=== PATIENT | male | born 2005 | race Two or more races ===

== ENCOUNTER 2024-05-09 13:56 | Emergency (ER) | payer MEDICAID ==
[~2024-05-09] VITALS: Ht 160 cm; Wt 47.7 kg
[~2024-05-09 13:56] MED LIST: LANTUS SUBCUT
[2024-05-09] MEDS ORDERED: DOXY-460 PO (14:58)
[2024-05-09] MEDS: CefTRIAXone 1000mg IM Kit (w/lidocaine diluent) IM ONE (15:12)
[2024-05-09 15:16] VITALS: BP 161/77; PULSE 99; RESP 17; TEMP 97.7; O2SAT 99
== END 2024-05-09 15:20 | disposition home or self-care (01) ==
LOC: ER 13:57
DX: L03.211 Cellulitis of face (principal); L02.01 Cutaneous abscess of face; Z79.4 Long term (current) use of insulin
CPT/HCPCS: 82948; 96372; 99283; J0696

== ENCOUNTER 2025-06-30 19:13 | Inpatient (IN) | payer MEDICAID ==
[~2025-06-30] VITALS: Ht 160 cm; Wt 50.0 kg
--- NOTE | 2025-06-30 19:40 | Physician Documentation ---
History of Present Illness ~ Chief Complaint: Hyperglycemia Stated Complaint: HYPERGLYCEMIA Time Seen by MD: 19:39 Primary Medical Doctor: FRANCIS DEWITT Mode of Arrival: EMS HPI Patient presents to the emergency room with chief complaint of hyperglycemia. Patient has a type 1 diabetic and has had to be previously admitted for DKA. He states he simply ran out of his insulin. He states he has been working with the insurance to try get his insulin but they state that he needs to see his primary care before that happens. He states he tried to see his primary care today but was unable to get a ride. He endorses polyuria but no pain or nausea. Medication Reconciliation Allergies: Coded Allergies: No Known Allergies (Unverified , 05/09/24) Scheduled Insulin Glargine,Hum.rec.anlog* (Lantus*), 48 UNITS SUBCUT HS Past Medical History Patient History: Patient reports no known family medical history. Review of Systems ROS All review of systems negative except as per HPI Physical Exam Vital Signs: Temperature: 98.7, Source: Oral, Heart Rate: 116, Respiratory Rate: 15, BP: 131/80, Pulse Oximetry: 100, Weight: 50.000 Physical Exam General: Patient is awake, alert, oriented x4 in no acute distress Head: Normocephalic and atraumatic. Eyes: Conjunctival normal. EOMI. PERRL. ENT: Mucous membranes dry. Neck: Supple, trachea is midline. Chest: Clear to auscultation bilaterally without rales, rhonchi, or wheezes. There is no accessory muscle use or retractions. Cardiac: Tachycardic and regular without murmurs, gallops, or rubs. Abd: Soft, nondistended, nontender, with normoactive bowel sounds. No guarding, rebound, or rigidity. Progress Results/Orders Results/Orders Orders - HENRIQUE BARROSO MD Electrocardiogram (06/30/25 19:23) Saline Lock (06/30/25 19:32) Straight Cath For Urine Sample (06/30/25 19:32) Mixed Venous (06/30/25 ) Page Hospitalist (06/30/25 21:28) Fill Out Med Reconciliation (06/30/25 21:28) Completed Orders - HENRIQUE BARROSO MD Cbc/Diff (06/30/25 19:32) Lipase (06/30/25 19:32) CMP (06/30/25 19:32) Normal Saline 1000ml (0.9% Sodium Chlori (06/30/25 19:35) Ua W/Microscopic, Cult If Ind (06/30/25 19:58) Normal Saline 1000ml (0.9% Sodium Chlori (06/30/25 20:30) Insulin Regular, Human (Humulin R 10 Uni (06/30/25 20:35) Medications Received in ER Medications (Trade) Dose Ordered Sig/Eric Route PRN Reason Start Time Stop Time Status Last Admin Dose Admin Sodium Chloride 1,000 ml @ 1,000 mls/hr ONCE ONCE IV 06/30/25 19:35 06/30/25 20:34 DC 06/30/25 19:41 1,000 MLS/HR Sodium Chloride 1,000 ml @ 1,000 mls/hr ONCE ONCE IV 06/30/25 20:30 06/30/25 21:29 DC 06/30/25 20:32 1,000 MLS/HR (HumuLIN R 10 units per 0.1 ML syringe) 5 units ONCE ONCE IV 06/30/25 20:35 06/30/25 20:36 DC 06/30/25 20:40 5 UNITS Vital Signs 06/30/25 06/30/25 06/30/25 06/30/25 19:27 19:32 19:33 21:05 Temp 98.7 Pulse 116 116 115 Resp 20 17 15 18 B/P (MAP) 131/80 131/80 (97) 116/99 (105) Pulse Ox 100 100 99 Laboratory Tests Test 06/30/25 19:43 06/30/25 19:58 06/30/25 20:15 06/30/25 20:38 White Blood Count 5.4 Red Blood Count 4.47 L Hemoglobin 14.0 Hematocrit 41.0 L Mean Corpuscular Volume 91.8 Mean Corpuscular Hemoglobin 31.2 H Mean Corpuscular Hemoglobin Concent 34.0 Red Cell Distribution Width 12.9 Platelet Count 223 Mean Platelet Volume 8.9 Neutrophils (%) (Auto) 62.2 Lymphocytes (%) (Auto) 29.3 Monocytes (%) (Auto) 7.0 Eosinophils (%) (Auto) 1.1 Basophils (%) (Auto) 0.4 Neutrophils # (Auto) 3.4 Lymphocytes # (Auto) 1.6 Monocytes # (Auto) 0.4 Eosinophils # (Auto) 0.1 Basophils # (Auto) 0.0 CBC Comment Sodium Level 135 Potassium Level 4.4 Chloride Level 100 Carbon Dioxide Level 16.7 L Anion Gap 18 H Blood Urea Nitrogen 13 Creatinine 0.77 Estimated GFR/1.73 m2 > 90 BUN/Creatinine Ratio 16.9 Glucose Level 470 *H Calcium Level 8.0 L Total Bilirubin 0.6 Aspartate Amino Transf (AST/SGOT) 12 Alanine Aminotransferase (ALT/SGPT) 14 Alkaline Phosphatase 121 Total Protein 6.0 L Albumin 3.1 L Globulin 2.9 Albumin/Globulin Ratio 1.1 Lipase 25 Chemistry Comments Urine Specimen Description Cln catch midstream Urine Color Yellow Urine Clarity Clear Urine pH 5.5 Urine Specific Colon 1.020 Urine Protein Negative Urine Glucose (UA) >=1000 H Urine Ketones >=80 Urine Occult Blood Negative Urine Nitrite Negative Urine Bilirubin Negative Urine Urobilinogen 0.2 Urine Leukocyte Esterase Negative Urine RBC 0-2 Urine WBC 0-4 Urine Squamous Epithelial Cells Few Urine Bacteria None seen Urine Culture Indicated Not ind Volume Urine Centrifuged 10 ml Urine Comment Glucometer 380 H 394 H Test 06/30/25 21:23 Venous Blood pH 7.179 *L Medical Decision Making Findings Patient presents to the emergency room for evaluation of hyperglycemia. Differentials include but are not limited to hyperosmotic state, hyperglycemia, uncontrolled diabetes, noncompliance, DKA therefore emergent labs ordered which shows that patient is in DKA. Both IV fluids and insulin has been initiated. Departure Admitted to Inpatient Unit: yes, to hospitalist Impression: Primary Impression: Diabetic ketoacidosis Condition: Guarded Referrals: NO PRIMARY CARE PROVIDER (PCP) Signature Scribe Signature: No scribe Attestation: The note accurately reflects work and decisions made by me.Henrqiue Barroso MD 06/30/25 21:35 HENRIQUE BARROSO MD Jun 30, 2025 19:40
[2025-06-30] MEDS: normal saline 1000ml 1,000 ML IV ONE ×3 (19:41→22:44)
[2025-06-30 19:51] LABS: MEAN PLATELET VOLUME 8.9 FL (7.4-10.4); RED CELL DISTRIBUTION WIDTH 12.9 % (11.5-14.5)
[2025-06-30 20:13] LABS: UA COLLECTION TYPE CLN CATCH MIDSTREAM
[2025-06-30 20:14] LABS: LEUKOCYTE ESTERASE ,URINE NEGATIVE (Neg); NITRITES, URINE NEGATIVE (Neg); OCCULT BLOOD,URINE NEGATIVE (Neg)
[2025-06-30 20:16] LABS: CREATININE 0.77 MG/DL (0.60-1.10); TOTAL CARBON DIOXIDE 16.7 MMOL/L (24-32); eCRCL 108 ML/MIN; eGFR > 90 ML/MIN
[2025-06-30 20:19] LABS: SQUAMOUS EPITHELIAL CELL,UR FEW /LPF (FEW)
[2025-06-30] MEDS: insulin regular, human 10 units/0.1 ml syringe IV ONE ×2 (20:40→23:41)
[2025-06-30] MEDS ORDERED: ondansetron/PF 4mg/2ml inj IV PRN (21:35)
[2025-06-30] MEDS ORDERED: magnesium Cl slow-release 64mg tablet PO PRN (21:35)
[2025-06-30] MEDS ORDERED: magnesium sulf-water 4G/100mL 100 ML IV PRN (21:35)
[2025-06-30] MEDS ORDERED: magnesium sulf-water 2g/50mL 50 ML IV PRN ×2 (21:35→21:40)
[2025-06-30] MEDS ORDERED: potassium Cl 40MEQ/1/2NS 520ml 520 ML IV PRN ×2 (21:35→21:40)
[2025-06-30] MEDS ORDERED: potassium Cl 20 mEq SR tablet PO PRN (21:35)
[2025-06-30] MEDS ORDERED: sodium phosphate inj. 15 MMOL in dextrose 5%-water 250 ML IV PRN (21:40)
[2025-06-30] MEDS ORDERED: ringers solution, lacted 1,000 ML IV SCH (21:40)
[2025-06-30] MEDS ORDERED: dextrose 50%-water 50ml dispensing syringe IV PRN ×3 (21:40→23:25)
[2025-06-30] MEDS ORDERED: potassium Cl 40MEQ/270ML bag 270 ML IV PRN (21:40)
[2025-06-30] MEDS ORDERED: Insulin Reg/NS 100units/100mL 100 ML IV SCH (21:40)
[2025-06-30] MEDS ORDERED: normal saline 1000ml 1,000 ML IV SCH (22:30)
--- NOTE | 2025-06-30 23:13 | HISTORY AND PHYSICAL-Residence ---
History & Physical Providers to CC Resident Creating Document: EULALIA RAMON RES ~ History of Present Illness Primary Medical Doctor: [facility] Reason for Admit\Complaint: DKA History of Present Illness The patient is a 19-year-old male with a history of type 1 diabetes mellitus, diagnosed at age 13, who presents to the ED seeking insulin. He reports that he has not taken insulin for the past three weeks due to insurance issues. He anticipated that he might go into DKA based on prior experiences, which prompted him to seek care. He describes significant poly urea and progressive weight last in recent weeks, with symptoms worsening over the past two days. He denies nausea, vomiting, and abdominal pain, and reports he is able to tolerate oral intake. He reports no recent sick contact, respiratory symptoms, or urinary symptoms. In ED, he was found to be in DKA. He lives in government subsidized housing with a roommate and works at [employer] (did not recommend, when asked). He had a scheduled PCP appointment in [facility], but missed because of transportation issues. Allergies: Coded Allergies: No Known Allergies (Unverified , 05/09/24) Home Medications Home Medications Active Lantus* (Insulin Glargine) 100 Unit/1 Ml Vial 48 Units SUBCUT HS Past Medical History Past Medical History Type 1 diabetes since age 13 Past Surgical History Surgical History Comment Noncontributory Family History Family History: Patient reports no known family medical history. Past Social History Social History Comment He lives in government subsidized housing with a roommate and works at [employer]. Denies smoking cigarettes, consuming alcohol, or using recreational drugs. ROS All Other Systems: Reviewed and Negative ROS As stated above in the HPI, otherwise all systems are reviewed and negative. Exam Vitals: Vital Signs Date Time Temp Pulse Resp B/P (MAP) Pulse Ox O2 Delivery O2 Flow Rate FiO2 06/30/25 22:19 102 12 121/76 (91) 99 06/30/25 19:27 98.7 General: Tired and dehydrated HEENT: Conjunctiva pink, Sclera clear, Mucus Membranes extremely dry Neck: Supple without masses and tenderness. Resp: Unlabored. Lungs clear to auscultation bilaterally. Heart: Regular Rate and rhythm, normal S1 and S2 without murmur, rub or gallop. Abdomen: Soft and non tender no organomegaly Extremities: No cyanosis,clubbing or edema. Skin: Warm and Dry. Diagnostic Data Last Recorded Lab Results: 06/30/25194206/30/251942 Advance Care Planning Advanced Care plannin - 30 Minutes Additional Plan Assessment and plan 19-year-old male with history of type 1 diabetes mellitus, diagnosed at age 13, presenting with DKA in the setting of three weeks without insulin due to insurance/transportation barriers. No evidence of infection; precipitant is insulin nonadherence. Diabetic ketoacidosis/DKA Anion gap 18, bicarb 16.7, BG 470, positive ketone urea Received 3 L NS. Continue LR to 50 mL/hours DKA protocol in place; started IV insulin infusion Monitor BMP, magnesium, phosphate every 4 hours Goal; close anion gap, pH > 7.3, HCO3 > 18 No bicarb therapy indicated at this time Transition to subcutaneous basal/bolus insulin once gap closes Electrolytes Sodium corrected 141; LR to 50 mL/hours Phosphorus, magnesium pending; replete if flu. Anticipate decline with insulin therapy Infection workup No fever, WBC 5.4, no systemic symptoms. Precipitant not infectious, no empiric antibiotics needed Social determinants Lack of access to care Missed insulin for three weeks due to insurance lapse in transportation issues services tech consulted for insulin access, insurance navigation, and reliable outpatient follow up Code status: Full code DVT prophylaxis: Heparin Eulalia Ramon Internal Medicine Resident I discussed the assessment and plan with the resident and agree with it with no changes. Rosina Goetz MD Critical Care Date of Service: Jun 30, 2025 Billing Provider: ROSINA GOETZ MD, [facility], [facility] Jun 30, 2025 23:13 ROSINA GOETZ MD Jul 01, 2025 20:29
[2025-06-30 23:18] LABS: CREATININE 0.56 MG/DL (0.60-1.10); TOTAL CARBON DIOXIDE 18.1 MMOL/L (24-32); eCRCL 149 ML/MIN; eGFR > 90 ML/MIN
[2025-06-30] MEDS ORDERED: glucagon, human recombinant 1mg kit SUBCUT PRN (23:25)
[2025-06-30] MEDS ORDERED: DEXTROSE 15 GM of carb/4 tabs (each vial/BOTTLE has 4 tablets) PO PRN ×2 (23:25)
[2025-06-30] MEDS: ringers solution, lacted 1,000 ML IV SCH (23:37)
[2025-06-30 23:59] VITALS: BP 109/75; PULSE 107; RESP 18; TEMP 98.6; O2SAT 97
[2025-07-01] VITALS (9 sets, daily range): BP systolic 119–133; BP diastolic 73–94; PULSE 86–99; RESP 16–19; TEMP 97.1–98.8; O2SAT 94–100
[2025-07-01 02:01] LABS: MEAN PLATELET VOLUME 8.8 FL (7.4-10.4); RED CELL DISTRIBUTION WIDTH 13.1 % (11.5-14.5)
[2025-07-01 02:19] LABS: CHOL/HDL RATIO 3.5 (0.00-4.99); CREATININE 0.45 MG/DL (0.60-1.10); LDL CHOLESTEROL 96 MG/DL (50-100); PHOSPHORUS 2.9 MG/DL (2.3-4.5); TOTAL CARBON DIOXIDE 15.1 MMOL/L (24-32); eCRCL 185 ML/MIN; eGFR > 90 ML/MIN
[2025-07-01] MEDS ORDERED: sodium phosphate inj. 15 MMOL in dextrose 5%-water 250 ML IV PRN (02:40)
[2025-07-01] MEDS ORDERED: dextrose 50%-water 50ml dispensing syringe IV PRN (02:40)
[2025-07-01] MEDS ORDERED: potassium Cl 40MEQ/270ML bag 270 ML IV PRN (02:40)
[2025-07-01] MEDS: Insulin Reg/NS 100units/100mL 100 ML IV ONE (03:04)
[2025-07-01] MEDS: potassium Cl 40MEQ/1/2NS 520ml 520 ML IV ONE (03:05)
[2025-07-01] MEDS: potassium Cl 40MEQ/1/2NS 520ml 520 ML IV PRN (03:11)
[2025-07-01] MEDS: Insulin Reg/NS 100units/100mL 100 ML IV SCH (03:21)
[2025-07-01] MEDS: magnesium sulf-water 2g/50mL 50 ML IV PRN (04:36)
[2025-07-01] MEDS: INSULIN LISPRO 100 UNIT/ML INSULN.PEN MULTI-DOSE SQ SCH ×2 (07:00→07:24)
[2025-07-01 07:06] LABS: CREATININE 0.51 MG/DL (0.60-1.10); TOTAL CARBON DIOXIDE 21.6 MMOL/L (24-32); eCRCL 163 ML/MIN; eGFR > 90 ML/MIN
[2025-07-01] MEDS: K and/or MAG REPLACEMENT MC SCH (08:00)
[2025-07-01] MEDS: insulin glargine (Lantus) pen - multi-dose SQ ONE (09:26)
[2025-07-01] MEDS: heparin, porcine 5000 units/ml vial SQ SCH (09:27)
--- NOTE | 2025-07-01 09:45 | ELECTROCARDIOGRAPH REPORT ---
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
[2025-07-01 12:09] LABS: CREATININE 0.39 MG/DL (0.60-1.10); PHOSPHORUS 3.8 MG/DL (2.3-4.5); TOTAL CARBON DIOXIDE 19.2 MMOL/L (24-32); eCRCL 214 ML/MIN; eGFR > 90 ML/MIN
--- NOTE | 2025-07-01 15:30 | PROGRESS NOTE- Residence ---
Progress Note - Resident Providers to CC Resident Creating Document: NISHANT HOLLOWAY RES ~ Antibiotic Timeout Antibiotic Ordered?: No Subjective Patient is seen and examined at bedside. He is still feeling drowsy but was able to eat without nausea, vomiting or abdominal pain. No other symptoms reported. Objective Vital Signs Date Time Temp Pulse Resp B/P (MAP) Pulse Ox O2 Delivery O2 Flow Rate FiO2 07/01/25 06:00 98 07/01/25 02:30 18 96 Room Air 07/01/25 02:00 98.8 120/73 (89) Result Diagram: 07/01/25 0146 07/01/25 1105 General: Awake and alert. HEENT: Conjunctiva pink, Sclera clear, Mucus Membranes dry Neck: Supple without masses and tenderness. Resp: Unlabored. Lungs clear to auscultation bilaterally. Heart: Regular Rate and rhythm, normal S1 and S2 without murmur, rub or gallop. Abdomen: Soft and non tender no organomegaly Extremities: No cyanosis,clubbing or edema. Skin: Warm and Dry. Plan Plan Assessment and plan 1. Type 1 diabetes mellitus complicated with diabetic ketoacidosis Assessment Uncontrolled diabetes mellitus type 1 secondary to insulin noncompliance as a consequence of insurance/transportation issues pH 7.179, Anion gap 18, bicarb 16.7, BG 470, positive ketone urea at presentation A1c > 12 Sodium corrected 141 No fever, WBC 5.4, no systemic symptoms. Precipitant not infectious, no empiric antibiotics needed Plan Received 3 L NS. Continue LR to 50 mL/hours DKA protocol in place; started IV insulin infusion Monitor BMP, magnesium, phosphate every 4 hours Goal; close anion gap, pH > 7.3, HCO3 > 18 No bicarb therapy indicated at this time Transition to subcutaneous basal/bolus insulin once gap closes 07/01/2025 Anion gap 8, bicarb 21.6, BG 139 Normal magnesium and phosphate Started on carb 75g diet 18 units of Lantus once 35 units of Lantus at bedtime Discontinued insulin drip and D5W solution Continue IV hydration with 1/2 NS at 100mL/h Encourage increased oral hydration Hyper/hypoglycemia protocol placed 2. Adverse social determinants of health Assessment Lack of access to care Missed insulin for three weeks due to insurance lapse in transportation issues Plan financial services internship consulted for insulin access, insurance navigation, and reliable outpatient follow up Code Status: Full code DVT prophylaxis: Heparin Nutrition: 75g carb diet Prognosis: Guarded Disposition: Continue medical treatment. Resident MD attestation The above note has been reviewed and supervised by a senior resident PGY2/PGY3 Patient was seen, examined and discussed with the attending physician Date of Service: Jul 01, 2025 Billing Provider: TINA ORELLANA MD Common Visit Codes: [id number] INP/OBS CARE(HIGH) NISHANT HOLLOWAY RES Jul 01, 2025 15:30 TINA ORELLANA MD Jul 01, 2025 18:48
[2025-07-01] MEDS: INSULIN LISPRO 100 UNIT/ML INSULN.PEN MULTI-DOSE SQ ONE (18:46)
[2025-07-01] MEDS ORDERED: insulin glargine (Lantus) pen - multi-dose SQ SCH (21:00)
[2025-07-01] MEDS: insulin glargine (Lantus) pen - multi-dose SQ SCH (21:03)
[2025-07-02 02:00] VITALS: BP 126/87; PULSE 88; RESP 20; TEMP 98.7; O2SAT 98
[2025-07-02 06:00] VITALS: BP 111/62; PULSE 84; RESP 12; TEMP 98; O2SAT 99
[2025-07-02 07:37] LABS: MEAN PLATELET VOLUME 8.4 FL (7.4-10.4); RED CELL DISTRIBUTION WIDTH 12.8 % (11.5-14.5)
[2025-07-02 08:00] VITALS: RESP 12; O2SAT 99
[2025-07-02 08:01] LABS: CREATININE 0.39 MG/DL (0.60-1.10); PHOSPHORUS 3.9 MG/DL (2.3-4.5); TOTAL CARBON DIOXIDE 23.5 MMOL/L (24-32); eCRCL 214 ML/MIN; eGFR > 90 ML/MIN
[2025-07-02] MEDS: potassium Cl 20 mEq SR tablet PO PRN (08:12)
--- NOTE | 2025-07-02 10:22 | PROGRESS NOTE- Residence ---
Progress Note - Resident Providers to CC Resident Creating Document: NISHANT HOLLOWAY RES ~ Antibiotic Timeout Antibiotic Ordered?: No Subjective Patient is seen and examined at bedside. Patient is tolerating oral diet. No hypoglycemia or overnight events reported. Objective Vital Signs Date Time Temp Pulse Resp B/P (MAP) Pulse Ox O2 Delivery O2 Flow Rate FiO2 07/02/25 08:00 12 99 Room Air 07/02/25 06:30 96 07/02/25 02:00 98.7 126/87 (100) Result Diagram: 07/02/25 0646 07/02/25 0646 General: Awake and alert. HEENT: Conjunctiva pink, Sclera clear, Mucus Membranes dry Neck: Supple without masses and tenderness. Resp: Unlabored. Lungs clear to auscultation bilaterally. Heart: Regular Rate and rhythm, normal S1 and S2 without murmur, rub or gallop. Abdomen: Soft and non tender no organomegaly Extremities: No cyanosis,clubbing or edema. Skin: Warm and Dry. Plan Plan Assessment and plan 1. Type 1 diabetes mellitus complicated with diabetic ketoacidosis Assessment Uncontrolled diabetes mellitus type 1 secondary to insulin noncompliance as a consequence of insurance/transportation issues pH 7.179, Anion gap 18, bicarb 16.7, BG 470, positive ketone urea at presentation A1c > 12 Sodium corrected 141 No fever, WBC 5.4, no systemic symptoms. Precipitant not infectious, no empiric antibiotics needed Plan Received 3 L NS. Continue LR to 50 mL/hours DKA protocol in place; started IV insulin infusion Monitor BMP, magnesium, phosphate every 4 hours Goal; close anion gap, pH > 7.3, HCO3 > 18 No bicarb therapy indicated at this time Transition to subcutaneous basal/bolus insulin once gap closes 07/01/2025 Anion gap 8, bicarb 21.6, BG 139 Normal magnesium and phosphate Started on carb 75g diet 18 units of Lantus once 35 units of Lantus at bedtime Discontinued insulin drip and D5W solution Continue IV hydration with 1/2 NS at 100mL/h Encourage increased oral hydration Hyper/hypoglycemia protocol placed 07/02/2025 Glucometer 90-302 in the last 24h Started on lispro 5 units before meals Glargine increased to 38 units at bedtime Diabetic education given today 2. Adverse social determinants of health Assessment Lack of access to care Missed insulin for three weeks due to insurance lapse in transportation issues Plan creative services intern consulted for insulin access, insurance navigation, and reliable outpatient follow up 07/02/2025 Case management gave insulin resources with the patient Code Status: Full code DVT prophylaxis: Heparin Nutrition: 75g carb diet Prognosis: Guarded Disposition: Continue medical treatment. Possibly discharge tomorrow. Resident MD attestation The above note has been reviewed and supervised by a senior resident PGY2/PGY3 Patient was seen, examined and discussed with the attending physician Addendum Detailed counseling done regarding risk and consequences of uncontrolled diabetes in measures how to improve diabetes explained to the patient strongly recommended close monitoring of the blood sugar and diet control Date of Service: Jul 02, 2025 Billing Provider: TINA ORELLANA MD Common Visit Codes: [id number] INP/OBS CARE(HIGH) NISHANT HOLLOWAY, GIANNI Jul 02, 2025 10:22 TINA ORELLANA MD Jul 02, 2025 16:57
[2025-07-02 11:00] VITALS: BP 114/79; PULSE 105; RESP 19; TEMP 98.5; O2SAT 98
[2025-07-02] MEDS: INSULIN LISPRO 100 UNIT/ML INSULN.PEN MULTI-DOSE SQ SCH (13:26)
[2025-07-02 15:00] VITALS: BP 106/70; PULSE 99; RESP 16; TEMP 98.6; O2SAT 99
--- NOTE | 2025-07-02 17:13 | DISCHARGE SUMMARY-Residence ---
Discharge Summary Providers to CC Resident Creating Document: NISHANT HOLLOWAY RES ~ Discharge Summary Admission Diagnosis: DKA Hospital Course DATE OF ADMISSION: 06/30/2025 DATE OF DISCHARGE: 07/02/2025 Laboratory Tests Test 06/30/25 19:43 06/30/25 19:58 06/30/25 20:15 06/30/25 20:38 White Blood Count 5.4 X10'3 Red Blood Count 4.47 X10'6 Hemoglobin 14.0 g/dl Hematocrit 41.0 % Mean Corpuscular Volume 91.8 FL Mean Corpuscular Hemoglobin 31.2 PG Mean Corpuscular Hemoglobin Concent 34.0 g/dL Red Cell Distribution Width 12.9 % Platelet Count 223 X10'3 Mean Platelet Volume 8.9 FL Neutrophils (%) (Auto) 62.2 % Lymphocytes (%) (Auto) 29.3 % Monocytes (%) (Auto) 7.0 % Eosinophils (%) (Auto) 1.1 % Basophils (%) (Auto) 0.4 % Neutrophils # (Auto) 3.4 X10'3 Lymphocytes # (Auto) 1.6 X10'3 Monocytes # (Auto) 0.4 X10'3 Eosinophils # (Auto) 0.1 X10'3 Basophils # (Auto) 0.0 X10'3 CBC Comment Sodium Level 135 MMOL/L Potassium Level 4.4 MMOL/L Chloride Level 100 MMOL/L Carbon Dioxide Level 16.7 MMOL/L Anion Gap 18 Blood Urea Nitrogen 13 MG/DL Creatinine 0.77 MG/DL Estimated GFR/1.73 m2 > 90 ML/MIN BUN/Creatinine Ratio 16.9 Glucose Level 470 MG/DL Hemoglobin A1c > 12.0 % Calcium Level 8.0 MG/DL Total Bilirubin 0.6 MG/DL Aspartate Amino Transf (AST/SGOT) 12 U/L Alanine Aminotransferase (ALT/SGPT) 14 U/L Alkaline Phosphatase 121 IU/L Total Protein 6.0 G/DL Albumin 3.1 G/DL Globulin 2.9 G/DL Albumin/Globulin Ratio 1.1 Lipase 25 U/L Chemistry Comments Urine Specimen Description Cln catch midstream Urine Color Yellow Urine Clarity Clear Urine pH 5.5 Urine Specific [place] 1.020 Urine Protein Negative mg/dl Urine Glucose (UA) >=1000 mg/dl Urine Ketones >=80 mg/dl Urine Occult Blood Negative Urine Nitrite Negative Urine Bilirubin Negative Urine Urobilinogen 0.2 E.U/dL Urine Leukocyte Esterase Negative Urine RBC 0-2 /HPF Urine WBC 0-4 /HPF Urine Squamous Epithelial Cells Few /LPF Urine Bacteria None seen /HPF Urine Culture Indicated Not ind Volume Urine Centrifuged 10 ml Urine Comment Glucometer 380 mg/dl 394 mg/dl Test 06/30/25 21:23 06/30/25 22:39 06/30/25 22:52 06/30/25 23:35 Venous Blood pH 7.179 Glucometer 243 mg/dl 225 mg/dl Sodium Level 138 MMOL/L Potassium Level 3.7 MMOL/L Chloride Level 105 MMOL/L Carbon Dioxide Level 18.1 MMOL/L Anion Gap 15 Blood Urea Nitrogen 9 MG/DL Creatinine 0.56 MG/DL Estimated GFR/1.73 m2 > 90 ML/MIN BUN/Creatinine Ratio 16.1 Glucose Level 226 MG/DL Calcium Level 7.2 MG/DL Albumin 3.3 G/DL Chemistry Comments Test 07/01/25 01:26 07/01/25 01:46 07/01/25 03:59 07/01/25 05:06 Glucometer 226 mg/dl 128 mg/dl 132 mg/dl White Blood Count 5.6 X10'3 Red Blood Count 4.81 X10'6 Hemoglobin 15.0 g/dl Hematocrit 44.3 % Mean Corpuscular Volume 92.1 FL Mean Corpuscular Hemoglobin 31.3 PG Mean Corpuscular Hemoglobin Concent 34.0 g/dL Red Cell Distribution Width 13.1 % Platelet Count 247 X10'3 Mean Platelet Volume 8.8 FL Neutrophils (%) (Auto) 59.9 % Lymphocytes (%) (Auto) 32.4 % Monocytes (%) (Auto) 6.4 % Eosinophils (%) (Auto) 1.0 % Basophils (%) (Auto) 0.3 % Neutrophils # (Auto) 3.4 X10'3 Lymphocytes # (Auto) 1.8 X10'3 Monocytes # (Auto) 0.4 X10'3 Eosinophils # (Auto) 0.1 X10'3 Basophils # (Auto) 0.0 X10'3 CBC Comment Sodium Level 138 MMOL/L Potassium Level 3.8 MMOL/L Chloride Level 104 MMOL/L Carbon Dioxide Level 15.1 MMOL/L Anion Gap 19 Blood Urea Nitrogen 7 MG/DL Creatinine 0.45 MG/DL Estimated GFR/1.73 m2 > 90 ML/MIN BUN/Creatinine Ratio 15.6 Glucose Level 220 MG/DL Calcium Level 8.1 MG/DL Phosphorus Level 2.9 MG/DL Magnesium Level 1.6 MG/DL Total Bilirubin 0.6 MG/DL Aspartate Amino Transf (AST/SGOT) 12 U/L Alanine Aminotransferase (ALT/SGPT) 16 U/L Alkaline Phosphatase 109 IU/L Total Protein 6.9 G/DL Albumin 3.7 G/DL Globulin 3.2 G/DL Albumin/Globulin Ratio 1.2 Triglycerides Level 143 MG/DL Cholesterol Level 169 MG/DL LDL Cholesterol 96 MG/DL HDL Cholesterol 48 MG/DL Cholesterol/HDL Ratio 3.5 Chemistry Comments Test 07/01/25 05:57 07/01/25 06:35 07/01/25 07:07 07/01/25 08:07 Glucometer 143 mg/dl 135 mg/dl 154 mg/dl Sodium Level 137 MMOL/L Potassium Level 3.2 MMOL/L Chloride Level 107 MMOL/L Carbon Dioxide Level 21.6 MMOL/L Anion Gap 8 Blood Urea Nitrogen 3 MG/DL Creatinine 0.51 MG/DL Estimated GFR/1.73 m2 > 90 ML/MIN BUN/Creatinine Ratio 5.9 Glucose Level 139 MG/DL Calcium Level 7.2 MG/DL Albumin 3.2 G/DL Chemistry Comments Test 07/01/25 09:17 07/01/25 10:11 07/01/25 11:04 07/01/25 11:05 Glucometer 168 mg/dl 260 mg/dl 277 mg/dl Sodium Level 137 MMOL/L Potassium Level 4.3 MMOL/L Chloride Level 102 MMOL/L Carbon Dioxide Level 19.2 MMOL/L Anion Gap 16 Blood Urea Nitrogen 2 MG/DL Creatinine 0.39 MG/DL Estimated GFR/1.73 m2 > 90 ML/MIN BUN/Creatinine Ratio 5.1 Glucose Level 275 MG/DL Calcium Level 8.2 MG/DL Phosphorus Level 3.8 MG/DL Magnesium Level 1.8 MG/DL Total Bilirubin 0.9 MG/DL Aspartate Amino Transf (AST/SGOT) 14 U/L Alanine Aminotransferase (ALT/SGPT) 15 U/L Alkaline Phosphatase 86 IU/L Total Protein 6.5 G/DL Albumin 3.3 G/DL Globulin 3.2 G/DL Albumin/Globulin Ratio 1.0 Chemistry Comments Test 07/01/25 12:01 07/01/25 13:30 07/01/25 14:26 07/01/25 15:24 Glucometer 263 mg/dl 282 mg/dl 273 mg/dl 249 mg/dl Test 07/01/25 16:26 07/01/25 18:02 07/01/25 19:33 07/01/25 20:52 Glucometer 262 mg/dl 243 mg/dl 302 mg/dl 279 mg/dl Test 07/01/25 21:59 07/01/25 23:12 07/02/25 00:08 07/02/25 00:59 Glucometer 298 mg/dl 186 mg/dl 157 mg/dl 146 mg/dl Test 07/02/25 03:00 07/02/25 05:27 07/02/25 06:46 07/02/25 07:34 Glucometer 111 mg/dl 103 mg/dl 90 mg/dl White Blood Count 4.9 X10'3 Red Blood Count 5.08 X10'6 Hemoglobin 15.6 g/dl Hematocrit 45.5 % Mean Corpuscular Volume 89.7 FL Mean Corpuscular Hemoglobin 30.7 PG Mean Corpuscular Hemoglobin Concent 34.3 g/dL Red Cell Distribution Width 12.8 % Platelet Count 248 X10'3 Mean Platelet Volume 8.4 FL Neutrophils (%) (Auto) 42.4 % Lymphocytes (%) (Auto) 48.1 % Monocytes (%) (Auto) 7.8 % Eosinophils (%) (Auto) 1.4 % Basophils (%) (Auto) 0.3 % Neutrophils # (Auto) 2.1 X10'3 Lymphocytes # (Auto) 2.3 X10'3 Monocytes # (Auto) 0.4 X10'3 Eosinophils # (Auto) 0.1 X10'3 Basophils # (Auto) 0.0 X10'3 CBC Comment Sodium Level 138 MMOL/L Potassium Level 2.5 MMOL/L Chloride Level 100 MMOL/L Carbon Dioxide Level 23.5 MMOL/L Anion Gap 15 Blood Urea Nitrogen 4 MG/DL Creatinine 0.39 MG/DL Estimated GFR/1.73 m2 > 90 ML/MIN BUN/Creatinine Ratio 10.3 Glucose Level 85 MG/DL Calcium Level 8.2 MG/DL Phosphorus Level 3.9 MG/DL Magnesium Level 1.7 MG/DL Total Bilirubin 0.6 MG/DL Aspartate Amino Transf (AST/SGOT) 17 U/L Alanine Aminotransferase (ALT/SGPT) 14 U/L Alkaline Phosphatase 80 IU/L Total Protein 6.8 G/DL Albumin 3.5 G/DL Globulin 3.3 G/DL Albumin/Globulin Ratio 1.1 Chemistry Comments Test 07/02/25 09:40 07/02/25 12:38 Glucometer 222 mg/dl 209 mg/dl Discharge Diagnosis\Comment: 1. Type 1 diabetes mellitus complicated with diabetic ketoacidosis ; 2. Adverse social determinants of health Operations\Procedures: None Consultants: None Complications: None Condition on DC: Stable Discharge Summary: History of present illness at the presentation The patient is a 19-year-old male with a history of type 1 diabetes mellitus, diagnosed at age 13, who presents to the ED seeking insulin. He reports that he has not taken insulin for the past three weeks due to insurance issues. He anticipated that he might go into DKA based on prior experiences, which prompted him to seek care. He describes significant poly urea and progressive weight last in recent weeks, with symptoms worsening over the past two days. He denies nausea, vomiting, and abdominal pain, and reports he is able to tolerate oral intake. He reports no recent sick contact, respiratory symptoms, or urinary symptoms. In ED, he was found to be in DKA. He lives in government subsidized housing with a roommate and works at [employer] (did not recommend, when asked). He had a scheduled PCP appointment in [facility], but missed because of transportation issues. Hospital course This is a 19-year-old male patient with a history of uncontrolled type 1 diabetes mellitus secondary to insulin noncompliance as a consequence of insurance/transportation issues, admitted for diabetic ketoacidosis after not taking the insulin for three weeks. At presentation he was severely dehydrated, with pH of 7.179 and A1c more than 12. The patient was then treated with insulin drip, potassium and IV fluids, showing clinical improvement. The insulin drip w as discontinued and the patient was resumed on the baseline insulin glargine of 38 units at bedtime and was also started on lispro 5 units before meals. Today the patient was still dehydrated and had severe hypokalemia, not ready to be discharged. Despite being extensively educated by the nurses and medical team about his condition he decided to leave the hospital AMA. He was also presented with resources for insulin access and insurance navigation. Physical exam General: Awake and alert. HEENT: Conjunctiva pink, Sclera clear, Mucus Membranes dry Neck: Supple without masses and tenderness. Resp: Unlabored. Lungs clear to auscultation bilaterally. Heart: Regular Rate and rhythm, normal S1 and S2 without murmur, rub or gallop. Abdomen: Soft and non tender no organomegaly Extremities: No cyanosis,clubbing or edema. Skin: Warm and Dry. Discharge medications/instructions Left AMA *Problems/Diagnosis: (1) Noncompliance Status: Acute (2) Noncompliance by refusing intervention or support Status: Acute (3) Diabetic ketoacidosis Status: Acute (4) Hyperglycemia Status: Acute (5) Hypokalemia Status: Acute Total Time Spent on D/C: > 30 Minutes Date of Service: Jul 02, 2025 Billing Provider: TINA ORELLANA MD, LUCAS, RES Jul 02, 2025 17:03
[2025-07-02] MEDS ORDERED: insulin glargine (Lantus) pen - multi-dose SQ SCH (21:00)
== END 2025-07-02 16:35 | disposition left against medical advice (07) | DRG 420 ==
LOC: ER 19:14 → ED HOLD 21:40 → UNDOADMIN 21:40 → ED HOLD 22:45 → PCU 3S 23:57
PROVIDERS: ADMIT Internal Medicine Pulmonary Disease; ATTEND Internal Medicine
DX: E11.10 Type 2 diabetes mellitus with ketoacidosis without coma (principal); E86.0 Dehydration; Z53.21 Procedure and treatment not carried out due to patient leaving prior to being seen by health care provider; Z79.4 Long term (current) use of insulin
CPT/HCPCS: 36415; 80048; 80053; 80061; 81001; 82800; 82948; 83036; 83690; 83735; 84100; 85025; 87081; 93005; 96361; 96374; 96375; 99285; G0378; J1644; J1815; J3480; J3490; J7030; J7120